=== PATIENT | female | born 2005 | race African-American/Black ===

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

== ENCOUNTER 2024-04-30 17:17 | Outpatient (CLI) | payer OTHER, SELFPAY | END 2024-04-30 17:18 | disposition home or self-care (01) | LOC: AMB 05-04 15:25 | PROVIDERS: Visit Provider Family Medicine | DX: M79.644 Pain in right finger(s) (principal) | CPT/HCPCS: A0998 ==

== ENCOUNTER 2025-01-10 09:48 | Outpatient (CLI) | payer OTHER, SELFPAY | END 2025-01-10 09:49 | disposition home or self-care (01) | PROVIDERS: PCP Registered Nurse; Visit Provider Registered Nurse | DX: R53.83 Other fatigue (principal); E55.9 Vitamin D deficiency, unspecified; Z13.1 Encounter for screening for diabetes mellitus | CPT/HCPCS: 82306; 82728; 82947; 84443 ==